=== PATIENT | female | born 1980 | race Two or more races ===

== ENCOUNTER 2021-07-03 14:25 | Emergency (ER) | payer MEDICAID ==
[~2021-07-03] VITALS: Ht 154.9 cm; Wt 88.9 kg
--- NOTE | 2021-07-03 14:52 | NUR ---
[id number] SEIZ[facility]. FEELING DIZZY TAP AND DIE MAKER TECHNICIAN. BG 138 TAP AND DIE MAKER TECHNICIAN. THE PATIENT IS ALERT AND ORIENTED X3. DENIES PAIN. IN ROOM AIR AND DENIES SOB. RESPIRATION REGULAR AND UNLABORED. ATTACHED TO THE MONITOR. WARM BLANKET PROVIDED FOR COMOFRT. ATTACHED TO THE MONITOR. SEIZURE PRECATIONS TAKEN.
--- NOTE | 2021-07-03 15:49 | NUR ---
THE PATIENT IS SLEEPING. EASILY RESPONSIVE TO VERBAL STIMULI. RESPIRATION REGULAR AND UNLABORED. WILL CONTINUE TO MONITOR THE PATIENT.
--- NOTE | 2021-07-03 16:07 | NUR ---
ARTURO CRAWFORD (FAMILY TINSEL MACHINE OPERATOR) - [phone].
[2021-07-03] MEDS: ACETAMINOPHEN ES 500 MG TABLET PO ONE (16:16)
[2021-07-03] MEDS: LEVETIRACETAM (500MG) 500 MG in IV NS 0.9% 100 ML IV ONE (16:16)
[2021-07-03] MEDS ORDERED: ACETAMINOPHEN ES 500 MG TABLET ONE (16:17)
[2021-07-03 17:36] VITALS: BP 116/72
--- NOTE | 2021-07-03 17:36 | NUR ---
IV removed. Catheter intact and site benign. Pressure and 4x4 applied to site. No bleeding noted.Patient discharged to home in stable condition. Written and verbal after care instructions given. Patient verbalizes understanding of instruction.
== END 2021-07-03 17:36 | disposition home or self-care (01) ==
LOC: ER 14:29
DX: G40.909 Epilepsy, unspecified, not intractable, without status epilepticus (principal)
CPT/HCPCS: 96365; 99284; J1953; J7030